=== PATIENT | male | born 1985 | race Caucasian/White ===

== ENCOUNTER 2016-07-08 14:33 | Emergency (ER) | payer MEDICARE, MEDICAID ==
--- NOTE | 2016-07-22 21:14 | ER ---
ADMIT: 07/08/2016 RM/LOC: ER [facility] MR#: [id number] [id number] [place] [address] Emergency Room Report SEX: M AGE: 30 : 1985 DATE: 07/08/2016 ADDENDUM: CHIEF COMPLAINT: Left hand weakness. HISTORY OF PRESENT ILLNESS: This is a 30-year-old who said he was doing a lot activities outdoors and a lot of lifting. He came in and he was on the computer playing some games. Before he knew it, his left 4th and 5th fingers were numb and tingly. He was not able to abduct his fingers together. When examining, the rest of his neuro exam is completely negative. He was worried about a stroke, so I did CT his head, it is negative for any acute infarct. I told him this seemed to be more of an ulnar nerve deficit. Told him not put any pressure on his elbow or region when he is playing games on the computer. I told him to follow up with PCP if symptoms continue. CLINICAL IMPRESSION: Is ulnar nerve deficit. AYO Javier / Simón Bolaños MD / jailynl JOB #: [id number] CC: Simón Bolaños MD, Attending Physician Kesha Parker MD, Family Physician
== END 2016-07-08 15:30 | disposition home or self-care (01) ==
LOC: ER 14:33
DX: G56.82 Other specified mononeuropathies of left upper limb (principal); F32.9 Major depressive disorder, single episode, unspecified; I10 Essential (primary) hypertension; F17.210 Nicotine dependence, cigarettes, uncomplicated; X50.9XXA Other and unspecified overexertion or strenuous movements or postures, initial encounter